=== PATIENT | female | born 1965 | race Caucasian/White ===

== ENCOUNTER 2017-06-18 14:34 | Observation (INO) ==
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
[2017-06-18 15:44] LABS: Bilirubin,Urine Negative (Negative); Blood,Urine Negative (Negative); Clarity,Urine Clear (Clear); Glucose,Urine (UA) Normal (Normal); Ketones,Urine Negative (Negative); Leukocyte Esterase,Urine Negative (Negative); Nitrite,Urine Negative (Negative); Protein,Urine Negative (Neg-Trace); Specific Gravity,Urine 1.015 (1.010-1.025); Urobilinogen,Urine Normal (Normal)
[2017-06-18 15:47] LABS: Color,Urine Light Yellow (Yellow)
[2017-06-18 15:49] LABS: Basophils % 0.5 %; Eosinophils # 0.1 K/mcL (0.0-0.6); Eosinophils % 2.8 %; Hematocrit 39.9 % (35.3-44.9); Hemoglobin 13.6 g/dL (11.5-15.4); Immature Granulocytes % 0.3 % (0-4); Lymphocytes # 1.3 K/mcL (0.6-4.6); Lymphocytes % 33.4 %; Mean Corpuscular HGB Conc 34.1 g/dL (31.6-35.5); Mean Corpuscular Hemoglobin 30.4 pg (28.0-33.3); Mean Corpuscular Volume 89.3 fL (83.0-100.0); Mean Platelet Volume 8.9 fL (9.4-12.4); Monocytes # 0.3 K/mcL (0.0-1.3); Monocytes % 8.2 %; Platelet Count 246 K/mcL (140-400); Red Blood Count 4.47 M/mcL (3.82-4.97); Segmented Neutrophils % 54.8 %
[2017-06-18 15:57] LABS: Amphetamine Screen,Urine Negative ng/mL (Cutoff=1000); Barbiturate Screen,Urine Negative ng/mL (Cutoff=200); Benzodiazepines Screen,Urine Negative ng/mL (Cutoff=200); Cannabinoid Screen,Urine Negative ng/mL (Cutoff = 50); Cocaine Screen,Urine Negative ng/mL (Cutoff= 300); Opiate Screen,Urine Positive ng/mL (Cutoff=300); Phencyclidine Screen,Urine Negative ng/mL (Cutoff=25)
[2017-06-18 15:58] LABS: Neutrophils # 2.1 K/mcL (1.6-8.9)
[2017-06-18 16:00] LABS: Prothrombin Time 11.1 Seconds (9.4-12.1)
[2017-06-18 16:03] LABS: Activated Partial Thrombo Time 29.8 Seconds (26.0-36.0)
[2017-06-18 16:06] LABS: Alanine Aminotransferase 19 Units/L (0-55); Albumin 3.8 g/dL (3.5-5.0); Alkaline Phosphatase 80 Units/L (38-126); Aspartate Amino Transferase 28 Units/L (5-34); BUN/Creatinine Ratio 19 (6-26); Bilirubin,Total 0.3 mg/dL (0.2-1.2); Blood Urea Nitrogen 13 mg/dL (7-20); Calcium 9.4 mg/dL (8.6-10.8); Carbon Dioxide 28 mEq/L (19-29); Chloride 103 mEq/L (98-109); Globulin 3.8 g/dL (2.4-3.5); Glucose 103 mg/dL (70-99); Osmolality,Calculated 294 (280-300); Potassium 3.5 mEq/L (3.5-4.5); Sodium 142 mEq/L (136-145); Total Protein 7.6 g/dL (6.0-8.3); eGFR For African Americans > 60 (> 60); eGFR For Non-African Americans > 60 (> 60)
[2017-06-18 16:34] LABS: Platelet Estimate Normal (Normal)
[2017-06-18] MEDS ORDERED: Ipratropium/Albuterol Neb 3 ML IH ONE (17:08)
[2017-06-18] MEDS ORDERED: levoFLOXacin 500 MG TABLET PO ONE (17:43)
[2017-06-18] MEDS ORDERED: methylPREDNISolone 125 MG/2 ML VIAL IVP ONE (17:43)
[2017-06-18] MEDS ORDERED: Ondansetron ODT 4 MG TAB.RAPDIS SL PRN (21:52)
[2017-06-18] MEDS ORDERED: Naloxone 0.4 MG/ML INJ IVP PRN (21:52)
[2017-06-18] MEDS ORDERED: Acetaminophen 325 MG TABLET PO PRN (21:52)
[2017-06-18] MEDS ORDERED: Ibuprofen 400 MG TABLET PO PRN (21:52)
[2017-06-18] MEDS ORDERED: *HR* LORazepam 1 MG TABLET PO PRN (21:52)
[2017-06-18] MEDS: Budesonide/Formoterol 160/4.5 MDI IH SCH (22:38)
[2017-06-18] MEDS: Ipratropium/Albuterol Neb 3 ML IH SCH (22:56)
[2017-06-18] MEDS: *HR* HYDROcodone/Acet 5/325 mg TABLET PO PRN (23:17)
[2017-06-18] MEDS: MethylPREDNISolone 40 MG/ML VIAL IVP SCH (23:18)
[2017-06-18] MEDS: *HR* LORazepam 0.5 MG TABLET PO PRN (23:18)
[2017-06-18] MEDS: Ondansetron ODT 4 MG TAB.RAPDIS SL SCH (23:18)
[2017-06-18] MEDS: Sucralfate 1 GM TABLET PO SCH (23:18)
[2017-06-19] MEDS: Temazepam 15 MG CAPSULE PO SCH ×2 (00:40→20:08)
[2017-06-19] MEDS: Albuterol 2.5 MG/3 ML NEBULIZER IH PRN ×2 (01:05→13:29)
[2017-06-19] MEDS: Ipratropium/Albuterol Neb 3 ML IH SCH ×4 (05:15→23:24)
[2017-06-19] MEDS: Gabapentin 300 MG CAPSULE PO SCH ×4 (08:27→20:09)
[2017-06-19] MEDS: GuaiFENesin/Dextromethorphan TABLET PO SCH ×4 (08:27→20:08)
[2017-06-19] MEDS: Nystatin SUSP 5 ML UD.LIQ PO SCH ×5 (08:27→20:09)
[2017-06-19] MEDS: PROMETHAZINE VC PO SCH ×4 (08:28→14:34)
[2017-06-19] MEDS: Dorzolamide OPTH 10 ML BOTTLE BOTH EYES SCH ×4 (08:28→20:25)
[2017-06-19 09:00] LABS: Hematocrit 36.2 % (35.3-44.9); Hemoglobin 12.5 g/dL (11.5-15.4); Mean Corpuscular HGB Conc 34.5 g/dL (31.6-35.5); Mean Corpuscular Hemoglobin 30.9 pg (28.0-33.3); Mean Corpuscular Volume 89.6 fL (83.0-100.0); Mean Platelet Volume 9.2 fL (9.4-12.4); Monocytes # 0.1 K/mcL (0.0-1.3); Neutrophils # 1.6 K/mcL (1.6-8.9); Platelet Count 236 K/mcL (140-400); Red Blood Count 4.04 M/mcL (3.82-4.97); Red Cell Distribution Width 11.9 % (11.5-14.5)
[2017-06-19] MEDS ORDERED: levoFLOXacin 500 MG TABLET PO SCH (09:00)
[2017-06-19] MEDS: Budesonide/Formoterol 160/4.5 MDI IH SCH ×2 (09:59→23:24)
[2017-06-19] MEDS: MethylPREDNISolone 40 MG/ML VIAL IVP SCH ×2 (10:11→14:34)
[2017-06-19] MEDS: Ondansetron ODT 4 MG TAB.RAPDIS SL SCH ×4 (10:12→17:53)
[2017-06-19] MEDS: Cholecalciferol (D-3) 1,000 UNIT TABLET PO SCH (10:14)
[2017-06-19] MEDS: *HR* LORazepam 0.5 MG TABLET PO PRN ×2 (10:14→14:49)
[2017-06-19] MEDS: Sucralfate 1 GM TABLET PO SCH ×4 (10:14→20:08)
[2017-06-19] MEDS: Aspirin Enteric Coated 81 MG Tablet PO SCH (10:14)
[2017-06-19] MEDS: *HR* HYDROcodone/Acet 5/325 mg TABLET PO PRN ×3 (10:15→20:08)
[2017-06-19 10:23] LABS: BUN/Creatinine Ratio 18 (6-26); Blood Urea Nitrogen 13 mg/dL (7-20); Calcium 9.5 mg/dL (8.6-10.8); Carbon Dioxide 26 mEq/L (19-29); Chloride 105 mEq/L (98-109); Glucose 177 mg/dL (70-99); Osmolality,Calculated 298 (280-300); Potassium 3.7 mEq/L (3.5-4.5); Sodium 142 mEq/L (136-145); eGFR For African Americans > 60 (> 60); eGFR For Non-African Americans > 60 (> 60)
[2017-06-19 11:57] LABS: Lymphocytes # 0.2 K/mcL (0.6-4.6)
[2017-06-19 11:58] LABS: Anisocytosis 1+ (Not Present); Hypochromasia Present (Not Present); Platelet Estimate Normal (Normal)
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
[2017-06-19] MEDS: Oxymetazoline Nasal SPRAY BOTTLE NS PRN ×2 (14:49→20:24)
[2017-06-19] MEDS: Nicotine 21 MG PATCH.TD24 TD SCH (14:49)
[2017-06-19] MEDS: GuaiFENesin/Codeine Oral Soln 5 ML UDC PO PRN (17:54)
[2017-06-19] MEDS: Doxycycline 100 MG CAPSULE PO SCH (20:08)
[2017-06-19] MEDS: Nystatin POWDER 30 GM BOTTLE TP SCH (20:25)
[2017-06-20] MEDS: *HR* LORazepam 0.5 MG TABLET PO PRN ×4 (00:03→16:18)
[2017-06-20] MEDS: *HR* HYDROcodone/Acet 5/325 mg TABLET PO PRN ×6 (00:03→21:24)
[2017-06-20] MEDS: Ondansetron ODT 4 MG TAB.RAPDIS SL SCH ×4 (00:04→17:48)
[2017-06-20] MEDS: GuaiFENesin/Codeine Oral Soln 5 ML UDC PO PRN ×4 (00:05→17:47)
[2017-06-20] MEDS: Ipratropium/Albuterol Neb 3 ML IH SCH ×4 (04:00→21:58)
[2017-06-20 06:16] LABS: Basophils % 0.2 %; Eosinophils % 0.1 %; Hematocrit 36.7 % (35.3-44.9); Hemoglobin 12.2 g/dL (11.5-15.4); Immature Granulocytes % 0.4 % (0-4); Lymphocytes # 1.5 K/mcL (0.6-4.6); Lymphocytes % 14.2 %; Mean Corpuscular HGB Conc 33.2 g/dL (31.6-35.5); Mean Corpuscular Hemoglobin 30.7 pg (28.0-33.3); Mean Corpuscular Volume 92.4 fL (83.0-100.0); Mean Platelet Volume 9.3 fL (9.4-12.4); Monocytes % 7.9 %; Platelet Count 264 K/mcL (140-400); Red Blood Count 3.97 M/mcL (3.82-4.97); Red Cell Distribution Width 12.1 % (11.5-14.5); Segmented Neutrophils % 77.2 %
[2017-06-20 06:20] LABS: Magnesium 2.1 mg/dL (1.6-2.6)
[2017-06-20 06:30] LABS: Monocytes # 0.9 K/mcL (0.0-1.3); Neutrophils # 8.3 K/mcL (1.6-8.9)
[2017-06-20 06:46] LABS: Thyroid Stimulating Hormone 0.441 mcIU/mL (0.350-4.840)
[2017-06-20] MEDS: Cholecalciferol (D-3) 1,000 UNIT TABLET PO SCH (08:12)
[2017-06-20] MEDS: Gabapentin 300 MG CAPSULE PO SCH ×3 (08:12→21:18)
[2017-06-20] MEDS: Sucralfate 1 GM TABLET PO SCH ×4 (08:12→21:19)
[2017-06-20] MEDS: Doxycycline 100 MG CAPSULE PO SCH ×2 (08:12→21:19)
[2017-06-20] MEDS: GuaiFENesin/Dextromethorphan TABLET PO SCH ×3 (08:12→21:19)
[2017-06-20] MEDS: Nicotine 21 MG PATCH.TD24 TD SCH (08:13)
[2017-06-20] MEDS: Aspirin Enteric Coated 81 MG Tablet PO SCH (08:13)
[2017-06-20] MEDS: Albuterol 2.5 MG/3 ML NEBULIZER IH PRN ×2 (08:25→14:37)
[2017-06-20] MEDS: Dorzolamide OPTH 10 ML BOTTLE BOTH EYES SCH ×2 (08:38→17:13)
[2017-06-20] MEDS: Nystatin SUSP 5 ML UD.LIQ PO SCH ×4 (08:38→21:33)
[2017-06-20] MEDS: Budesonide/Formoterol 160/4.5 MDI IH SCH ×2 (11:11→21:58)
--- NOTE | 2017-06-20 11:34 | Internal Med Progress Note ---
Date of Encounter: 06/20/17 Time of Encounter: 11:20 - Assessment and plan (1) Acute exacerbation of chronic obstructive airways disease Current Visit: Yes Status: Acute Assessment and plan: Mame . Continue IV doxycycline. I will restart IV Solu-Medrol since she has wheezing. PT and OT evaluations will be done since she wishes to be placed in SNF. - Subjective Interval history: June 20. She has no new complaints. She does not feel her breathing has significantly improved. - Constitutional Vitals: Temp Pulse Resp BP Pulse Ox 98.6 F 78 16 98/57 96 06/20/17 10:45 06/20/17 10:45 06/20/17 11:11 06/20/17 10:45 06/20/17 11:11 Exam: She is resting comfortably bed. She has prolonged expiratory phase and mild diffuse wheezing. Extremities show no edema. I reviewed her medications and lab results. Internal Medicine: Result - Labs CBC & Chem 7: 06/20/17 05:15 06/19/17 07:25 Labs: Short CBC 06/19/17 06/20/17 Range/Units 07:25 05:15 WBC 10.7 D (4.3-11.1) K/mcL Hgb 12.2 (11.5-15.4) g/dL Hct 36.7 (35.3-44.9) % Plt Count 264 (140-400) K/mcL Neutrophils # 1.6 8.3 (1.6-8.9) K/mcL - ABG Interpretation ABG results: PT/INR, D-dimer PT 11.1 Seconds (9.4-12.1) 06/18/17 15:34 Consult Discharge Plan - Plan Referrals: Armando Rollins MD [Primary Care Provider] - 1 week
[2017-06-20] MEDS: methylPREDNISolone 125 MG/2 ML VIAL IVP SCH ×2 (12:30→16:10)
[2017-06-20] MEDS: Fluticasone Propionate Nasal 50 MCG/SPRAY BOTTLE NS SCH (14:59)
[2017-06-20] MEDS ORDERED: Furosemide 20 MG TABLET PO PRN (16:07)
[2017-06-20] MEDS: Nystatin POWDER 30 GM BOTTLE TP SCH ×2 (16:10→21:21)
--- NOTE | 2017-06-20 16:45 | Electrocardiograph Report ---
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
[2017-06-20] MEDS: MetroNIDAZOLE Vaginal Gel VG SCH ×2 (18:59→21:20)
[2017-06-20] MEDS ORDERED: *HR* LORazepam 0.5 MG TABLET PO SCH (21:00)
[2017-06-20] MEDS: Oxymetazoline Nasal SPRAY BOTTLE NS PRN (21:22)
[2017-06-20] MEDS: Temazepam 15 MG CAPSULE PO SCH (21:33)
[2017-06-21] MEDS: Ondansetron ODT 4 MG TAB.RAPDIS SL SCH ×2 (00:39→05:43)
[2017-06-21] MEDS: GuaiFENesin/Codeine Oral Soln 5 ML UDC PO PRN ×3 (01:02→23:57)
[2017-06-21] MEDS: methylPREDNISolone 125 MG/2 ML VIAL IVP SCH ×4 (01:02→23:56)
[2017-06-21] MEDS: Ipratropium/Albuterol Neb 3 ML IH SCH ×4 (05:09→22:06)
[2017-06-21] MEDS: *HR* HYDROcodone/Acet 5/325 mg TABLET PO PRN ×4 (05:43→21:55)
[2017-06-21 06:18] LABS: Basophils % 0.2 %; Hematocrit 39.3 % (35.3-44.9); Immature Granulocytes % 0.9 % (0-4); Lymphocytes # 0.9 K/mcL (0.6-4.6); Lymphocytes % 6.8 %; Mean Corpuscular HGB Conc 33.1 g/dL (31.6-35.5); Mean Corpuscular Hemoglobin 30.6 pg (28.0-33.3); Mean Corpuscular Volume 92.5 fL (83.0-100.0); Mean Platelet Volume 9.6 fL (9.4-12.4); Monocytes # 0.1 K/mcL (0.0-1.3); Neutrophils # 11.8 K/mcL (1.6-8.9); Platelet Count 326 K/mcL (140-400); Red Blood Count 4.25 M/mcL (3.82-4.97); Segmented Neutrophils % 91.1 %
[2017-06-21] MEDS: Aspirin Enteric Coated 81 MG Tablet PO SCH (08:50)
[2017-06-21] MEDS: Doxycycline 100 MG CAPSULE PO SCH ×2 (08:50→21:55)
[2017-06-21] MEDS: Cholecalciferol (D-3) 1,000 UNIT TABLET PO SCH (08:51)
[2017-06-21] MEDS: Gabapentin 300 MG CAPSULE PO SCH ×3 (08:51→21:55)
[2017-06-21] MEDS: Sucralfate 1 GM TABLET PO SCH ×5 (08:51→22:11)
[2017-06-21] MEDS: GuaiFENesin/Dextromethorphan TABLET PO SCH ×3 (08:51→21:54)
[2017-06-21] MEDS: Nicotine 21 MG PATCH.TD24 TD SCH (08:51)
[2017-06-21] MEDS: Fluticasone Propionate Nasal 50 MCG/SPRAY BOTTLE NS SCH (08:54)
[2017-06-21] MEDS: Nystatin SUSP 5 ML UD.LIQ PO SCH ×4 (08:55→21:54)
[2017-06-21] MEDS: MetroNIDAZOLE Vaginal Gel VG SCH ×2 (08:55→21:58)
[2017-06-21] MEDS: Ondansetron ODT 4 MG TAB.RAPDIS SL PRN (09:12)
[2017-06-21] MEDS: Nystatin POWDER 30 GM BOTTLE TP SCH ×2 (09:16→21:59)
[2017-06-21] MEDS: Mag Hydrox/Al Hydrox/Simeth 30 ML UDC PO PRN ×2 (10:07→22:08)
[2017-06-21] MEDS: *HR* LORazepam 0.5 MG TABLET PO PRN (10:07)
[2017-06-21] MEDS: Budesonide/Formoterol 160/4.5 MDI IH SCH ×2 (10:38→22:06)
--- NOTE | 2017-06-21 11:10 | Internal Med Progress Note ---
Date of Encounter: 06/21/17 Time of Encounter: 11:00 - Assessment and plan (1) Acute exacerbation of chronic obstructive airways disease Current Visit: Yes Status: Acute Assessment and plan: June 20. Continue IV doxycycline. I will restart IV Solu-Medrol since she has wheezing. PT and OT evaluations will be done since she wishes to be placed in SNF. June 21. Continue present regimen. Anticipate discharge to SNF in next 1- 2 days. - Subjective Interval history: June 20. She has no new complaints. She does not feel her breathing has significantly improved. June 21. She has no new complaints. She reports she still feels some dyspnea. She asked for increased doses of opiates but I declined to do this. She asked about increased Ativan but the ECF will not accept her at a dose exceeding 2 mg daily. - Constitutional Vitals: Temp Pulse Resp BP Pulse Ox 98.4 F 77 17 118/77 98 06/21/17 07:07 06/21/17 07:07 06/21/17 07:07 06/21/17 07:07 06/21/17 07:07 Exam: She is resting correctly in bed and appears in no acute distress. She has mild expiratory wheezing. Heart is regular without murmurs gallops or ectopics. Extremities show no edema. She is able to talk without difficulty. Internal Medicine: Result - Labs CBC & Chem 7: 06/21/17 05:09 06/19/17 07:25 Labs: Short CBC 06/21/17 Range/Units 05:09 WBC 12.9 H (4.3-11.1) K/mcL Hgb 13.0 (11.5-15.4) g/dL Hct 39.3 (35.3-44.9) % Plt Count 326 (140-400) K/mcL Neutrophils # 11.8 H (1.6-8.9) K/mcL - ABG Interpretation ABG results: PT/INR, D-dimer PT 11.1 Seconds (9.4-12.1) 06/18/17 15:34 Consult Discharge Plan - Plan Referrals: Armando Rollins MD [Primary Care Provider] - 1 week
[2017-06-21] MEDS: Dorzolamide OPTH 10 ML BOTTLE BOTH EYES SCH (11:12)
[2017-06-21] MEDS: Albuterol 2.5 MG/3 ML NEBULIZER IH PRN ×2 (13:04→19:49)
[2017-06-21] MEDS: *HR* LORazepam 1 MG TABLET PO PRN (17:53)
[2017-06-21] MEDS: Temazepam 15 MG CAPSULE PO SCH (21:54)
[2017-06-22] MEDS: *HR* HYDROcodone/Acet 5/325 mg TABLET PO PRN ×4 (03:34→22:32)
[2017-06-22] MEDS: Ipratropium/Albuterol Neb 3 ML IH SCH ×4 (05:34→23:56)
[2017-06-22] MEDS: Nystatin SUSP 5 ML UD.LIQ PO SCH ×4 (08:03→22:32)
[2017-06-22] MEDS: Doxycycline 100 MG CAPSULE PO SCH ×2 (08:04→22:34)
[2017-06-22] MEDS: GuaiFENesin/Dextromethorphan TABLET PO SCH ×3 (08:04→22:39)
[2017-06-22] MEDS: Gabapentin 300 MG CAPSULE PO SCH ×3 (08:05→22:34)
[2017-06-22] MEDS: Ondansetron ODT 4 MG TAB.RAPDIS SL PRN ×2 (08:06→15:54)
[2017-06-22] MEDS: Sucralfate 1 GM TABLET PO SCH ×4 (08:06→22:32)
[2017-06-22] MEDS: Aspirin Enteric Coated 81 MG Tablet PO SCH (08:06)
[2017-06-22] MEDS: Cholecalciferol (D-3) 1,000 UNIT TABLET PO SCH (08:06)
[2017-06-22] MEDS: Nicotine 21 MG PATCH.TD24 TD SCH (08:07)
[2017-06-22] MEDS: Dorzolamide OPTH 10 ML BOTTLE BOTH EYES SCH (08:08)
[2017-06-22] MEDS: GuaiFENesin/Codeine Oral Soln 5 ML UDC PO PRN ×2 (08:09→22:30)
[2017-06-22] MEDS: methylPREDNISolone 125 MG/2 ML VIAL IVP SCH ×2 (08:10→15:48)
[2017-06-22] MEDS: Fluticasone Propionate Nasal 50 MCG/SPRAY BOTTLE NS SCH (08:10)
[2017-06-22] MEDS: Albuterol 2.5 MG/3 ML NEBULIZER IH PRN ×2 (08:49→21:29)
[2017-06-22] MEDS: Budesonide/Formoterol 160/4.5 MDI IH SCH ×2 (08:50→21:29)
[2017-06-22] MEDS: *HR* LORazepam 1 MG TABLET PO PRN (09:55)
[2017-06-22] MEDS: Nystatin POWDER 30 GM BOTTLE TP SCH ×2 (11:27→22:45)
--- NOTE | 2017-06-22 18:53 | Internal Med Progress Note ---
Date of Encounter: 06/22/17 Time of Encounter: 18:45 - Assessment and plan (1) Acute exacerbation of chronic obstructive airways disease Current Visit: Yes Status: Acute Assessment and plan: June 20. Continue IV doxycycline. I will restart IV Solu-Medrol since she has wheezing. PT and OT evaluations will be done since she wishes to be placed in SNF. June 21. Continue present regimen. Anticipate discharge to SNF in next 1- 2 days. June 22. Continue present medical management. - Subjective Interval history: June 20. She has no new complaints. She does not feel her breathing has significantly improved. June 21. She has no new complaints. She reports she still feels some dyspnea. She asked for increased doses of opiates but I declined to do this. She asked about increased Ativan but the ECF will not accept her at a dose exceeding 2 mg daily. June 22. She has no new complaints. - Constitutional Vitals: Temp Pulse Resp BP Pulse Ox 97.9 F 95 16 138/89 95 06/22/17 18:29 06/22/17 18:29 06/22/17 18:29 06/22/17 18:29 06/22/17 18:29 Exam: She is resting comfortably in bed and appears in no acute distress. Her affect is bright and cheerful. Her lungs show much less wheezing today. Extremities show no edema. Reviewed her medications and lab results. Reviewed the note from nursing staff stating that denial notification for SNF placement had been received. Internal Medicine: Result - Labs CBC & Chem 7: 06/21/17 05:09 06/19/17 07:25 - ABG Interpretation ABG results: PT/INR, D-dimer PT 11.1 Seconds (9.4-12.1) 06/18/17 15:34 Consult Discharge Plan - Plan Referrals: Armando Rollins MD [Primary Care Provider] - 1 week
[2017-06-22] MEDS: MetroNIDAZOLE Vaginal Gel VG SCH ×2 (19:04→22:39)
[2017-06-22] MEDS: Temazepam 15 MG CAPSULE PO SCH (22:36)
[2017-06-23] MEDS: methylPREDNISolone 125 MG/2 ML VIAL IVP SCH ×4 (00:47→23:57)
[2017-06-23] MEDS: Ondansetron ODT 4 MG TAB.RAPDIS SL PRN ×4 (01:17→21:25)
[2017-06-23] MEDS: *HR* LORazepam 1 MG TABLET PO PRN ×3 (01:18→18:09)
[2017-06-23] MEDS: Ipratropium/Albuterol Neb 3 ML IH SCH ×4 (05:00→22:58)
[2017-06-23] MEDS: Albuterol 2.5 MG/3 ML NEBULIZER IH PRN ×3 (08:35→20:13)
[2017-06-23] MEDS: Nicotine 21 MG PATCH.TD24 TD SCH (10:43)
[2017-06-23] MEDS: Aspirin Enteric Coated 81 MG Tablet PO SCH (10:44)
[2017-06-23] MEDS: GuaiFENesin/Dextromethorphan TABLET PO SCH ×3 (10:44→20:53)
[2017-06-23] MEDS: MetroNIDAZOLE Vaginal Gel VG SCH ×2 (10:44→21:06)
[2017-06-23] MEDS: Nystatin SUSP 5 ML UD.LIQ PO SCH ×4 (10:45→20:53)
[2017-06-23] MEDS: Gabapentin 300 MG CAPSULE PO SCH ×3 (10:45→20:53)
[2017-06-23] MEDS: Doxycycline 100 MG CAPSULE PO SCH ×2 (10:45→20:53)
[2017-06-23] MEDS: Sucralfate 1 GM TABLET PO SCH ×4 (10:46→20:53)
[2017-06-23] MEDS: Cholecalciferol (D-3) 1,000 UNIT TABLET PO SCH (10:47)
[2017-06-23] MEDS: Budesonide/Formoterol 160/4.5 MDI IH SCH ×2 (10:52→22:59)
[2017-06-23] MEDS: *HR* HYDROcodone/Acet 5/325 mg TABLET PO PRN ×3 (10:54→21:00)
[2017-06-23] MEDS: Nystatin POWDER 30 GM BOTTLE TP SCH ×2 (10:58→21:04)
[2017-06-23] MEDS: Dorzolamide OPTH 10 ML BOTTLE BOTH EYES SCH (10:58)
[2017-06-23] MEDS: Fluticasone Propionate Nasal 50 MCG/SPRAY BOTTLE NS SCH (10:59)
[2017-06-23] MEDS: GuaiFENesin/Codeine Oral Soln 5 ML UDC PO PRN ×2 (12:40→21:02)
--- NOTE | 2017-06-23 15:27 | Internal Med Progress Note ---
Date of Encounter: 06/23/17 Time of Encounter: 15:15 - Assessment and plan (1) Acute exacerbation of chronic obstructive airways disease Current Visit: Yes Status: Acute Assessment and plan: June 20. Continue IV doxycycline. I will restart IV Solu-Medrol since she has wheezing. PT and OT evaluations will be done since she wishes to be placed in SNF. June 21. Continue present regimen. Anticipate discharge to SNF in next 1- 2 days. June 22. Continue present medical management. June 23. Continue medical management. Staff is attempting to find alternative housing. - Subjective Interval history: June 20. She has no new complaints. She does not feel her breathing has significantly improved. June 21. She has no new complaints. She reports she still feels some dyspnea. She asked for increased doses of opiates but I declined to do this. She asked about increased Ativan but the ECF will not accept her at a dose exceeding 2 mg daily. June 22. She has no new complaints. June 23. She has no new complaints. - Constitutional Vitals: Temp Pulse Resp BP Pulse Ox 97.9 F 78 20 116/72 98 06/23/17 14:46 06/23/17 14:46 06/23/17 14:46 06/23/17 14:46 06/23/17 14:46 Exam: She is resting comfortably in bed and appears in no acute distress. I reviewed her medications and lab results. I informed her she had been declined by [employer] for skilled SNF placement Internal Medicine: Result - Labs CBC & Chem 7: 06/21/17 05:09 06/19/17 07:25 - ABG Interpretation ABG results: PT/INR, D-dimer PT 11.1 Seconds (9.4-12.1) 06/18/17 15:34 Consult Discharge Plan - Plan Referrals: Armando Rollins MD [Primary Care Provider] - 1 week
[2017-06-23] MEDS: Nitroglycerin 0.4 MG TAB.SUBL SL PRN ×3 (18:30→18:44)
[2017-06-23] MEDS: Temazepam 15 MG CAPSULE PO SCH (20:54)
[2017-06-24] MEDS: *HR* LORazepam 1 MG TABLET PO PRN ×3 (00:07→13:26)
[2017-06-24] MEDS: *HR* HYDROcodone/Acet 5/325 mg TABLET PO PRN ×6 (01:05→22:44)
[2017-06-24] MEDS: DiphenhydraMINE CREAM 28.4 GM TUBE TP PRN ×2 (01:05→21:02)
[2017-06-24] MEDS: Ipratropium/Albuterol Neb 3 ML IH SCH ×4 (04:50→17:39)
[2017-06-24] MEDS: Cholecalciferol (D-3) 1,000 UNIT TABLET PO SCH (08:09)
[2017-06-24] MEDS: Gabapentin 300 MG CAPSULE PO SCH ×3 (08:09→20:51)
[2017-06-24] MEDS: Nystatin SUSP 5 ML UD.LIQ PO SCH ×4 (08:09→20:53)
[2017-06-24] MEDS: Nicotine 21 MG PATCH.TD24 TD SCH (08:09)
[2017-06-24] MEDS: GuaiFENesin/Dextromethorphan TABLET PO SCH ×3 (08:09→20:51)
[2017-06-24] MEDS: methylPREDNISolone 125 MG/2 ML VIAL IVP SCH ×2 (08:09→15:45)
[2017-06-24] MEDS: Doxycycline 100 MG CAPSULE PO SCH (08:09)
[2017-06-24] MEDS: Aspirin Enteric Coated 81 MG Tablet PO SCH (08:09)
[2017-06-24] MEDS: Fluticasone Propionate Nasal 50 MCG/SPRAY BOTTLE NS SCH (08:09)
[2017-06-24] MEDS: Sucralfate 1 GM TABLET PO SCH ×4 (08:09→20:52)
[2017-06-24] MEDS: MetroNIDAZOLE Vaginal Gel VG SCH ×2 (08:11→20:54)
[2017-06-24] MEDS: Nystatin POWDER 30 GM BOTTLE TP SCH ×2 (08:11→20:54)
[2017-06-24] MEDS: Dorzolamide OPTH 10 ML BOTTLE BOTH EYES SCH ×2 (08:11→14:13)
[2017-06-24] MEDS: GuaiFENesin/Codeine Oral Soln 5 ML UDC PO PRN ×3 (08:18→21:01)
[2017-06-24] MEDS: Ondansetron ODT 4 MG TAB.RAPDIS SL PRN ×2 (08:18→22:45)
[2017-06-24] MEDS: Budesonide/Formoterol 160/4.5 MDI IH SCH ×2 (10:19→20:58)
[2017-06-24] MEDS ORDERED: Promethazine 12.5 MG in 0.9 % Sodium Chloride 50 ML IVPB PRN (17:51)
[2017-06-24] MEDS ORDERED: *HR* Promethazine 25 MG/ML VIAL IVP PRN (17:53)
--- NOTE | 2017-06-24 17:53 | Internal Med Progress Note ---
Date of Encounter: 06/24/17 Time of Encounter: 17:40 - Assessment and plan (1) Acute exacerbation of chronic obstructive airways disease Current Visit: Yes Status: Acute Assessment and plan: June 20. Continue IV doxycycline. I will restart IV Solu-Medrol since she has wheezing. PT and OT evaluations will be done since she wishes to be placed in SNF. June 21. Continue present regimen. Anticipate discharge to SNF in next 1- 2 days. June 22. Continue present medical management. June 23. Continue medical management. Staff is attempting to find alternative housing. June 24. We will discontinue steroids and antibiotics. Staff is still attempting to find alternative housing. - Subjective Interval history: June 20. She has no new complaints. She does not feel her breathing has significantly improved. June 21. She has no new complaints. She reports she still feels some dyspnea. She asked for increased doses of opiates but I declined to do this. She asked about increased Ativan but the ECF will not accept her at a dose exceeding 2 mg daily. June 22. She has no new complaints. June 23. She has no new complaints. June 24. She has no new complaints. - Constitutional Vitals: Temp Pulse Resp BP Pulse Ox 98.0 F 83 16 124/64 96 06/24/17 07:00 06/24/17 07:00 06/24/17 13:26 06/24/17 07:00 06/24/17 13:26 Exam: She is resting fairly comfortably in bed. She has prolonged expiratory phase and mild wheezing. She is taking a nebulizer treatment at time of examination. Heart is regular without murmurs gallops or ectopics. I reviewed her medications and lab results. Internal Medicine: Result - Labs CBC & Chem 7: 06/21/17 05:09 06/19/17 07:25 - ABG Interpretation ABG results: PT/INR, D-dimer PT 11.1 Seconds (9.4-12.1) 06/18/17 15:34 Consult Discharge Plan - Plan Referrals: Armando Rollins MD [Primary Care Provider] - 1 week
[2017-06-24] MEDS: Temazepam 15 MG CAPSULE PO SCH (20:50)
[2017-06-24] MEDS: *HR* LORazepam 0.5 MG TABLET PO PRN (20:53)
[2017-06-24] MEDS: Latanoprost 2.5 ML BOTTLE BOTH EYES SCH (20:54)
[2017-06-24] MEDS: Albuterol 2.5 MG/3 ML NEBULIZER IH PRN (20:58)
[2017-06-25] MEDS: *HR* LORazepam 0.5 MG TABLET PO PRN ×3 (05:11→18:31)
[2017-06-25] MEDS: *HR* HYDROcodone/Acet 5/325 mg TABLET PO PRN ×5 (05:13→22:43)
[2017-06-25] MEDS: GuaiFENesin/Codeine Oral Soln 5 ML UDC PO PRN (05:15)
[2017-06-25] MEDS: Albuterol 2.5 MG/3 ML NEBULIZER IH PRN ×4 (05:40→22:46)
[2017-06-25] MEDS: Nystatin SUSP 5 ML UD.LIQ PO SCH ×4 (10:19→22:45)
[2017-06-25] MEDS: Fluticasone Propionate Nasal 50 MCG/SPRAY BOTTLE NS SCH (10:19)
[2017-06-25] MEDS: Gabapentin 300 MG CAPSULE PO SCH ×3 (10:20→22:41)
[2017-06-25] MEDS: GuaiFENesin/Dextromethorphan TABLET PO SCH ×3 (10:20→22:40)
[2017-06-25] MEDS: Dorzolamide OPTH 10 ML BOTTLE BOTH EYES SCH (10:20)
[2017-06-25] MEDS: Sucralfate 1 GM TABLET PO SCH ×5 (10:20→22:42)
[2017-06-25] MEDS: Cholecalciferol (D-3) 1,000 UNIT TABLET PO SCH (10:20)
[2017-06-25] MEDS: MetroNIDAZOLE Vaginal Gel VG SCH (10:21)
[2017-06-25] MEDS: Nicotine 21 MG PATCH.TD24 TD SCH (10:21)
[2017-06-25] MEDS: Nystatin POWDER 30 GM BOTTLE TP SCH ×2 (10:21→22:46)
[2017-06-25] MEDS: Budesonide/Formoterol 160/4.5 MDI IH SCH ×2 (11:36→20:07)
[2017-06-25] MEDS: Tiotropium 18 MCG inhalation IH SCH (11:36)
--- NOTE | 2017-06-25 12:08 | Internal Med Progress Note ---
Date of Encounter: 06/25/17 Time of Encounter: 11:55 - Assessment and plan (1) Acute exacerbation of chronic obstructive airways disease Current Visit: Yes Status: Acute Assessment and plan: June 20. Continue IV doxycycline. I will restart IV Solu-Medrol since she has wheezing. PT and OT evaluations will be done since she wishes to be placed in SNF. June 21. Continue present regimen. Anticipate discharge to SNF in next 1- 2 days. June 22. Continue present medical management. June 23. Continue medical management. Staff is attempting to find alternative housing. June 24. We will discontinue steroids and antibiotics. Staff is still attempting to find alternative housing. June 25. She requested a Medrol Dosepak stating it gives her energy and helps her breathing. - Subjective Interval history: June 20. She has no new complaints. She does not feel her breathing has significantly improved. June 21. She has no new complaints. She reports she still feels some dyspnea. She asked for increased doses of opiates but I declined to do this. She asked about increased Ativan but the ECF will not accept her at a dose exceeding 2 mg daily. June 22. She has no new complaints. June 23. She has no new complaints. June 24. She has no new complaints. June 25. She has no new complaints. - Constitutional Vitals: Temp Pulse Resp BP Pulse Ox 98.2 F 69 16 139/87 100 06/25/17 07:45 06/25/17 07:45 06/25/17 07:45 06/25/17 07:45 06/25/17 07:45 Exam: She is resting comfortably on the side of the bed. Her lungs show very minimal wheezing. Heart is regular without murmurs gallops or ectopics. I reviewed her medications and lab results. Internal Medicine: Result - Labs CBC & Chem 7: 06/21/17 05:09 06/19/17 07:25 - ABG Interpretation ABG results: PT/INR, D-dimer PT 11.1 Seconds (9.4-12.1) 06/18/17 15:34 Consult Discharge Plan - Plan Referrals: Armando Rollins MD [Primary Care Provider] - 1 week
[2017-06-25] MEDS: Ondansetron ODT 4 MG TAB.RAPDIS SL PRN ×2 (14:27→18:31)
[2017-06-25] MEDS: methylPREDNISolone 4 MG TABLET PO SCH (17:44)
[2017-06-25] MEDS: Latanoprost 2.5 ML BOTTLE BOTH EYES SCH (22:40)
[2017-06-25] MEDS: Temazepam 15 MG CAPSULE PO SCH (22:42)
[2017-06-26] MEDS: *HR* LORazepam 0.5 MG TABLET PO PRN ×4 (00:47→22:24)
[2017-06-26] MEDS: Ondansetron ODT 4 MG TAB.RAPDIS SL PRN ×2 (00:48→10:55)
[2017-06-26] MEDS: Sucralfate 1 GM TABLET PO SCH ×4 (06:14→21:22)
[2017-06-26] MEDS: *HR* HYDROcodone/Acet 5/325 mg TABLET PO PRN ×4 (06:14→21:21)
[2017-06-26] MEDS: Nicotine 21 MG PATCH.TD24 TD SCH (08:24)
[2017-06-26] MEDS: Nystatin SUSP 5 ML UD.LIQ PO SCH ×4 (08:26→21:21)
[2017-06-26] MEDS: Fluticasone Propionate Nasal 50 MCG/SPRAY BOTTLE NS SCH (08:27)
[2017-06-26] MEDS: Gabapentin 300 MG CAPSULE PO SCH ×3 (08:28→21:22)
[2017-06-26] MEDS: GuaiFENesin/Dextromethorphan TABLET PO SCH ×3 (08:28→21:22)
[2017-06-26] MEDS: Nystatin POWDER 30 GM BOTTLE TP SCH (08:29)
[2017-06-26] MEDS: Cholecalciferol (D-3) 1,000 UNIT TABLET PO SCH (08:29)
[2017-06-26] MEDS: methylPREDNISolone 4 MG TABLET PO SCH ×2 (08:29→16:53)
[2017-06-26 08:33] LABS: Basophils % 0.4 %; Eosinophils # 0.1 K/mcL (0.0-0.6); Eosinophils % 2.5 %; Hematocrit 38.9 % (35.3-44.9); Hemoglobin 12.9 g/dL (11.5-15.4); Immature Granulocytes % 2.3 % (0-4); Lymphocytes # 1.6 K/mcL (0.6-4.6); Lymphocytes % 30.4 %; Mean Corpuscular HGB Conc 33.2 g/dL (31.6-35.5); Mean Corpuscular Hemoglobin 30.5 pg (28.0-33.3); Mean Platelet Volume 8.9 fL (9.4-12.4); Monocytes # 0.4 K/mcL (0.0-1.3); Monocytes % 7.3 %; Platelet Count 258 K/mcL (140-400); Red Blood Count 4.23 M/mcL (3.82-4.97); Red Cell Distribution Width 12.1 % (11.5-14.5); Segmented Neutrophils % 57.1 %
[2017-06-26] MEDS ORDERED: IVERMECTIN 3 MG PO ONE (08:44)
[2017-06-26 08:46] LABS: BUN/Creatinine Ratio 33 (6-26); Blood Urea Nitrogen 21 mg/dL (7-20); Calcium 8.7 mg/dL (8.6-10.8); Carbon Dioxide 32 mEq/L (19-29); Chloride 101 mEq/L (98-109); Glucose 80 mg/dL (70-99); Osmolality,Calculated 294 (280-300); Sodium 141 mEq/L (136-145); eGFR For African Americans > 60 (> 60); eGFR For Non-African Americans > 60 (> 60)
[2017-06-26] MEDS ORDERED: NON-FORMULARY MEDICATION 1 EACH EACH PO SCH (09:00)
[2017-06-26] MEDS: Tiotropium 18 MCG inhalation IH SCH (11:07)
[2017-06-26] MEDS: Budesonide/Formoterol 160/4.5 MDI IH SCH ×2 (11:07→22:45)
[2017-06-26] MEDS: hydrOXYzine pamoate 25 MG CAPSULE PO PRN ×2 (11:24→21:21)
--- NOTE | 2017-06-26 12:38 | Internal Med Progress Note ---
Date of Encounter: 06/26/17 Time of Encounter: 12:30 - Assessment and plan (1) Acute exacerbation of chronic obstructive airways disease Current Visit: Yes Status: Acute Assessment and plan: June 20. Continue IV doxycycline. I will restart IV Solu-Medrol since she has wheezing. PT and OT evaluations will be done since she wishes to be placed in SNF. June 21. Continue present regimen. Anticipate discharge to SNF in next 1- 2 days. June 22. Continue present medical management. June 23. Continue medical management. Staff is attempting to find alternative housing. June 24. We will discontinue steroids and antibiotics. Staff is still attempting to find alternative housing. June 25. She requested a Medrol Dosepak stating it gives her energy and helps her breathing. June 26. Continue present regimen. Anticipate discharge in 1-2 days when housing can be located. - Subjective Interval history: June 20. She has no new complaints. She does not feel her breathing has significantly improved. June 21. She has no new complaints. She reports she still feels some dyspnea. She asked for increased doses of opiates but I declined to do this. She asked about increased Ativan but the ECF will not accept her at a dose exceeding 2 mg daily. June 22. She has no new complaints. June 23. She has no new complaints. June 24. She has no new complaints. June 25. She has no new complaints. June 26. She has no new complaints and feels better - Constitutional Vitals: Temp Pulse Resp BP Pulse Ox 97.5 F L 64 16 93/60 100 06/26/17 06:30 06/26/17 06:30 06/26/17 06:30 06/26/17 06:30 06/26/17 06:30 Exam: She is resting comfortably in bed and appears in no acute distress. She does not appear dyspneic. I reviewed her medications and lab results. Internal Medicine: Result - Labs CBC & Chem 7: 06/26/17 08:21 06/26/17 08:21 Labs: Short CBC 06/26/17 Range/Units 08:21 WBC 5.2 D (4.3-11.1) K/mcL Hgb 12.9 (11.5-15.4) g/dL Hct 38.9 (35.3-44.9) % Plt Count 258 (140-400) K/mcL Neutrophils # 3.0 (1.6-8.9) K/mcL BMP 06/26/17 08:21 Sodium 141 Potassium 4.0 Chloride 101 Carbon Dioxide 32 H BUN 21 H Creatinine 0.63 Glucose 80 Calcium 8.7 - ABG Interpretation ABG results: PT/INR, D-dimer PT 11.1 Seconds (9.4-12.1) 06/18/17 15:34 Consult Discharge Plan - Plan Referrals: Armando Rollins MD [Primary Care Provider] - 1 week
[2017-06-26] MEDS: Albuterol 2.5 MG/3 ML NEBULIZER IH PRN (17:46)
[2017-06-26] MEDS: Latanoprost 2.5 ML BOTTLE BOTH EYES SCH ×2 (21:23→22:25)
[2017-06-26] MEDS: Temazepam 15 MG CAPSULE PO SCH (22:24)
[2017-06-27] MEDS: Albuterol 2.5 MG/3 ML NEBULIZER IH PRN ×4 (00:52→20:20)
[2017-06-27] MEDS: Nystatin POWDER 30 GM BOTTLE TP SCH ×3 (01:20→21:34)
[2017-06-27] MEDS: *HR* HYDROcodone/Acet 5/325 mg TABLET PO PRN ×5 (01:31→22:25)
[2017-06-27] MEDS: Mag Hydrox/Al Hydrox/Simeth 30 ML UDC PO PRN ×3 (01:32→22:53)
[2017-06-27] MEDS: *HR* LORazepam 0.5 MG TABLET PO PRN ×3 (05:12→21:31)
[2017-06-27] MEDS: Ondansetron ODT 4 MG TAB.RAPDIS SL PRN (05:12)
[2017-06-27] MEDS: Nystatin SUSP 5 ML UD.LIQ PO SCH ×5 (09:07→21:20)
[2017-06-27] MEDS: Nicotine 21 MG PATCH.TD24 TD SCH (09:07)
[2017-06-27] MEDS: Gabapentin 300 MG CAPSULE PO SCH ×3 (09:08→21:19)
[2017-06-27] MEDS: Fluticasone Propionate Nasal 50 MCG/SPRAY BOTTLE NS SCH (09:08)
[2017-06-27] MEDS: Cholecalciferol (D-3) 1,000 UNIT TABLET PO SCH (09:09)
[2017-06-27] MEDS: Sucralfate 1 GM TABLET PO SCH ×4 (09:09→21:19)
[2017-06-27] MEDS: Dorzolamide OPTH 10 ML BOTTLE BOTH EYES SCH (09:11)
[2017-06-27] MEDS: methylPREDNISolone 4 MG TABLET PO SCH ×2 (09:11→17:22)
[2017-06-27] MEDS: hydrOXYzine pamoate 25 MG CAPSULE PO PRN ×2 (09:24→21:29)
[2017-06-27] MEDS: Tiotropium 18 MCG inhalation IH SCH (09:52)
[2017-06-27] MEDS: Budesonide/Formoterol 160/4.5 MDI IH SCH ×2 (09:52→21:23)
[2017-06-27] MEDS: GuaiFENesin/Dextromethorphan TABLET PO SCH ×3 (12:25→21:19)
--- NOTE | 2017-06-27 15:10 | Discharge Summary ---
Date of Encounter: 06/27/17 Time of Encounter: 14:50 - Discharge Diagnosis (1) Acute exacerbation of chronic obstructive airways disease Priority: Primary Status: Acute (2) Hypertension Priority: Secondary Status: Chronic Qualifiers: Hypertension type: essential hypertension Qualified Code(s): I10 - Essential (primary) hypertension - Discharge Medications Prescriptions: Ondansetron ODT [Zofran ODT] 4 mg SL Q6HR #24 tab.rapdis Albuterol Sulfate [Ventolin Hfa] 18 gm IH Q4H PRN #1 hfa.aer.ad PRN Reason: Dyspnea Budesonide/Formoterol 160/4.5 [Symbicort 160/4.5] 2 puff IH BIDR #1 inhaler DiphenhydraMINE [Benadryl] 1 appl TP QID PRN #1 tube PRN Reason: Itching Dorzolamide [Trusopt] 1 drop BOTH EYES TID #1 bottle Fluticasone Propionate Nasal [Flonase] 50 mcg NS DAILY #1 bottle Gabapentin [Neurontin] 600 mg PO TID #180 capsule hydrOXYzine pamoate [HydrOXYzine Pamoate] 50 mg PO TID PRN #180 capsule PRN Reason: Itching Latanoprost [Xalatan] 2.5 ml OP DAILY #1 bottle LORazepam [Ativan] 0.5 mg PO TID PRN #21 tablet PRN Reason: Anxiety methylPREDNISolone [Medrol] 4 mg PO BIDWM #6 tablet Montelukast [Singulair] 10 mg PO HS #30 tablet Nicotine Patch [Nicoderm] 21 mg TD DAILY #21 patch.td24 Nitroglycerin [Nitrostat] 0.4 mg SL Q5M PRN #1 vial PRN Reason: Chest Pain Sucralfate [Carafate] 1 gm PO QIDAC #120 tablet Temazepam [Restoril] 30 mg PO HS #7 capsule Tiotropium [Spiriva] 18 mcg IH DAILYR #30 inh Home Medications: Aspirin [Lo-Dose Aspirin EC] 81 mg PO DAILY 04/01/17 [History] Atorvastatin [Lipitor] 40 mg PO HS 04/01/17 [History] Phenylephrine/Dm/Acetaminop/GG [Fast Mucus Relief Severe Cplt] 1 each PO TID 01/09 [History] Cholecalciferol (Vitamin D3) [Vitamin D3] 400 unit PO DAILY 04/02/17 [History] Omeprazole Magnesium 20 mg PO DAILY 04/02/17 [History] Polyethylene Glycol 3350 [MiraLAX Powder Bulk 17.9 Oz] 1 scoop PO DAILY [History] Albuterol Sulfate [Ventolin Hfa] 18 gm IH Q4H PRN #1 hfa.aer.ad 06/27/17 [Rx] Budesonide/Formoterol 160/4.5 [Symbicort 160/4.5] 2 puff IH BIDR #1 inhaler 08/13 [Rx] DiphenhydraMINE [Benadryl] 1 appl TP QID PRN #1 tube 06/27/17 [Rx] Dorzolamide [Trusopt] 1 drop BOTH EYES TID #1 bottle 06/27/17 [Rx] Fluticasone Propionate Nasal [Flonase] 50 mcg NS DAILY #1 bottle 06/27/17 [Rx] Gabapentin [Neurontin] 600 mg PO TID #180 capsule 06/27/17 [Rx] LORazepam [Ativan] 0.5 mg PO TID PRN #21 tablet 06/27/17 [Rx] Latanoprost [Xalatan] 2.5 ml OP DAILY #1 bottle 06/27/17 [Rx] Montelukast [Singulair] 10 mg PO HS #30 tablet 06/27/17 [Rx] Nicotine Patch [Nicoderm] 21 mg TD DAILY #21 patch.td24 06/27/17 [Rx] Nitroglycerin [Nitrostat] 0.4 mg SL Q5M PRN #1 vial 06/27/17 [Rx] Ondansetron ODT [Zofran ODT] 4 mg SL Q6HR #24 tab.rapdis 06/27/17 [Rx] Sucralfate [Carafate] 1 gm PO QIDAC #120 tablet 06/27/17 [Rx] Temazepam [Restoril] 30 mg PO HS #7 capsule 06/27/17 [Rx] Tiotropium [Spiriva] 18 mcg IH DAILYR #30 inh 06/27/17 [Rx] hydrOXYzine pamoate [HydrOXYzine Pamoate] 50 mg PO TID PRN #180 capsule [Rx] methylPREDNISolone [Medrol] 4 mg PO BIDWM #6 tablet 06/27/17 [Rx] Allergies/Adverse Reactions: 3 Allergy/AdvReac Type Severity Reaction Status Date / Time No Known Drug Allergies Allergy Watery Eye Verified 06/20/17 16:03 Date of admission: 06/18/17 18:20 Primary care physician: Armando Rollins, Consults: 06/20/17 10:31 Consult to Occupational Therapy [CONS] Routine Comment: Evaluate, develop and implement POC Reason for Consult: weakness Consult to Physical Therapy [CONS] Routine Comment: Evaluate, develop and implement POC Reason for Consult: weakness - Patient Status Disposition: Home, Self-Care Condition: Fair Overall status at discharge: patient is progressing back to baseline - Discharge Instructions - Diet and Activity Activity: resume usual activities as tolerated, wear oxygen at all times Diet: advance to your usual diet Hospital course: Ms. Melara is a 52 year old female who came to emergency room stating she had increasing dyspnea over the past 2 weeks. She reports onset of symptoms approximately 2 months ago. She had a minimally productive cough. She received prescriptions for Z-Андрей and more recently Levaquin which she finished the day prior to coming to the emergency room. Reports there was little response to antibiotics. She was evaluated in emergency room felt to have exacerbation of COPD. She was [facility] to [facility] for ongoing care needs. Initial orders were written by the emergency room physician. I saw her on June 19 and performed the history and physical. She was given doxycycline through June 24. She remained afebrile. She was maintained on oral steroids after IV steroids were discontinued. She had gradual improvement in her respiratory status. Room air oximetry was tested on a 6 minute walk. Her saturations dropped to 87% at the third minute. She became dyspneic and required immediate reinstitution of oxygen for comfort and safety. She will be discharged to the [facility] on oxygen at 2 L/m by nasal cannula 16/01 with portable gas and concentrator. Qualifying diagnosis is COPD with hypoxemia. Social service consult was obtained and attempts to find housing for her were started. Finally arrangements were complete her to be discharged to the [facility] June 28. - Time Spent with Patient Total time spent providing and/or coordinating discharge services: - Constitutional Vitals: Temp Pulse Resp BP Pulse Ox 98.4 F 79 17 107/68 98 06/27/17 07:17 06/27/17 07:17 06/27/17 14:13 06/27/17 07:17 06/27/17 14:13
[2017-06-27] MEDS: Latanoprost 2.5 ML BOTTLE BOTH EYES SCH (21:20)
[2017-06-27] MEDS: Temazepam 15 MG CAPSULE PO SCH (21:29)
[2017-06-27 22:13] LABS: Bilirubin,Urine Negative (Negative); Blood,Urine Negative (Negative); Clarity,Urine Clear (Clear); Color,Urine Yellow (Yellow); Glucose,Urine (UA) Normal (Normal); Ketones,Urine Negative (Negative); Leukocyte Esterase,Urine Negative (Negative); Nitrite,Urine Negative (Negative); PH,Urine 8.5 pH Units (5.0-8.0); Protein,Urine Negative (Neg-Trace); Urobilinogen,Urine Normal (Normal)
[2017-06-27 22:23] VITALS: BP 110/70
[2017-06-28] MEDS: *HR* HYDROcodone/Acet 5/325 mg TABLET PO PRN ×2 (02:21→06:44)
[2017-06-28] MEDS: Ondansetron ODT 4 MG TAB.RAPDIS SL PRN (02:22)
[2017-06-28] MEDS: *HR* LORazepam 0.5 MG TABLET PO PRN (06:44)
[2017-06-28] MEDS: Sucralfate 1 GM TABLET PO SCH (06:44)
[2017-06-28] MEDS: GuaiFENesin/Dextromethorphan TABLET PO SCH (08:47)
[2017-06-28] MEDS: Nystatin SUSP 5 ML UD.LIQ PO SCH (08:47)
[2017-06-28] MEDS: Gabapentin 300 MG CAPSULE PO SCH (08:47)
[2017-06-28] MEDS: Cholecalciferol (D-3) 1,000 UNIT TABLET PO SCH (08:47)
[2017-06-28] MEDS: methylPREDNISolone 4 MG TABLET PO SCH (08:47)
[2017-06-28] MEDS: Fluticasone Propionate Nasal 50 MCG/SPRAY BOTTLE NS SCH (08:48)
[2017-06-28] MEDS: Albuterol 2.5 MG/3 ML NEBULIZER IH PRN (09:04)
== END 2017-06-28 11:00 | disposition home or self-care (01) ==
LOC: INPPIK 14:34 → EMEROOPIK 14:34 → INPPIK 19:11
PROVIDERS: ADMIT Internal Medicine; ATTEND Internal Medicine